=== PATIENT | male | born 1970 | race Caucasian/White ===

== ENCOUNTER 2016-10-05 21:06 | Emergency (ER) | payer OTHER ==
[2016-10-06] MEDS ORDERED: KETOROLAC 30 MG/ML VIAL ONE (02:01)
[2016-10-06] MEDS ORDERED: METHYLPRED SOD SUCC 125 MG/2 ML VIAL ONE (02:01)
== END 2016-10-06 02:45 | disposition home or self-care (01) ==
LOC: ER 21:06
DX: M10.072 Idiopathic gout, left ankle and foot (principal); M10.071 Idiopathic gout, right ankle and foot; Z87.891 Personal history of nicotine dependence
CPT/HCPCS: 36415; 80053; 84550; 85025; 96374; 96375; 99283; J1885; J2930